=== PATIENT | male | born 1985 | race African-American/Black ===

== ENCOUNTER 2020-11-13 08:34 | Emergency (ER) | payer OTHER ==
[~2020-11-13] VITALS: Ht 188 cm; Wt 122.5 kg
[~2020-11-13 08:34] MED LIST: AZITHROMYCIN 2250 MG PO; ULTRAM 50MG TAB50 MG PO
[2020-11-13 08:36] VITALS: BP 137/91
[2020-11-13] MEDS ORDERED: FLEXERIL PO (09:28)
[2020-11-13] MEDS ORDERED: IBUPROFEN 600600 M1 PO (09:28)
[2020-11-13] MEDS ORDERED: LIDODERM1 EACH TOP (09:28)
== END 2020-11-13 09:40 | disposition home or self-care (01) ==
LOC: ER 08:34
DX: S06.0X0A Concussion without loss of consciousness, initial encounter (principal); M54.2 Cervicalgia; V43.52XA Car driver injured in collision with other type car in traffic accident, initial encounter; Y93.19 Activity, other involving water and watercraft; Y92.89 Other specified places as the place of occurrence of the external cause; Y99.8 Other external cause status